=== PATIENT | female | born 1990 | race Caucasian/White ===

== ENCOUNTER → 2024-03-02 | Outpatient (CLI) | payer OTHER ==
[2024-03-02 11:59] LABS: Source, Urine Clean Catch
[2024-03-02 13:23] LABS: Bacteria Many /hpf; Red Blood Cells, Urine Not Seen /hpf (0-2); Squamous Epithelial Cells Rare /hpf (Few); White Blood Cells, Urine 0-2 /hpf (0-5)
== END | disposition home or self-care (01) ==
LOC: LAB SHORT 11:56
PROVIDERS: Advanced Practice Midwife
DX: O09.90 Supervision of high risk pregnancy, unspecified, unspecified trimester (principal)
CPT/HCPCS: 81015; 87077; 87086; 87186

== ENCOUNTER → 2024-09-22 | Outpatient (CLI) | payer OTHER | LOC: LAB 16:16 → LAB SHORT 16:16 | DX: O09.90 Supervision of high risk pregnancy, unspecified, unspecified trimester (principal) | CPT/HCPCS: 87081; 87150 ==

== ENCOUNTER 2024-10-14 20:02 | Inpatient (IN) | payer OTHER ==
[~2024-10-14] VITALS: Ht 175.3 cm; Wt 83.6 kg
[2024-10-14] MEDS ORDERED: Misoprostol 200 MCG Tab BC PRN (20:10)
[2024-10-14] MEDS ORDERED: Misoprostol 200 MCG Tab PR PRN (20:10)
[2024-10-14] MEDS ORDERED: Calcium Carbonate 500 MG Tab Chew PO PRN (20:10)
[2024-10-14] MEDS ORDERED: OXYTOCIN/RINGER'S LACTATE 500 ML IV PRN (20:10)
[2024-10-14] MEDS ORDERED: ePHEDrine Sulfate 50 MG/ML 1ML Injection XX PRN (20:10)
[2024-10-14] MEDS ORDERED: Lactated Ringer's 1,000 ML IV PRN ×5 (20:10→21:40)
[2024-10-14] MEDS ORDERED: Oxytocin 10 Unit / ML Vial IM PRN (20:10)
[2024-10-14] MEDS ORDERED: Methylergonovine Maleate 0.2MG / ML 1ML Amp IM PRN (20:10)
[2024-10-14] MEDS ORDERED: Carboprost Tromethamine 250 MCG/ML 1ML Amp IM PRN (20:10)
[2024-10-14] MEDS ORDERED: FentaNYL 2mcg/ml-Bup 0.1% Epd 250 ML EPI PRN (20:10)
[2024-10-14] MEDS ORDERED: Acetaminophen 500 MG Tab PO PRN (20:15)
[2024-10-14] MEDS ORDERED: Ondansetron HCl 2 MG / ML 2ML Vial IV PRN (20:15)
[2024-10-14] MEDS ORDERED: FentaNYL Citrate 50 MCG/ML 2 ML Injection IV PRN (20:15)
[2024-10-14 20:19] VITALS: BP 134/89
[2024-10-14] MEDS ORDERED: Tranexamic Acid 100 ML IV PRN (20:20)
[2024-10-14 20:48] LABS: BASOPHILS ABSOLUTE AUTO 0.05 K/mm3 (0.00-0.23); BASOPHILS PERCENT AUTO 0 % (0-2); EOSINOPHILS PERCENT AUTO 1 % (0-6); Hematocrit 32.9 % (33.0-51.0); Hemoglobin 11.1 g/dL (11.5-16.0); IMMATURE GRAN PERCENT AUTO 1 % (0-1); LYMPHOCYTES ABSOLUTE AUTO 2.84 K/mm3 (0.84-5.20); LYMPHOCYTES PERCENT AUTO 21 % (21-46); MONOCYTES ABSOLUTE AUTO 0.96 K/mm3 (0.16-1.47); MONOCYTES PERCENT AUTO 7 % (4-13); Mean Corpuscular HGB 26.9 pg (26.0-34.0); Mean Corpuscular HGB Conc 33.7 g/dL (31.5-36.5); Mean Corpuscular Volume 80 fL (80-100); Mean Platelet Volume 11.8 fL (9.1-12.4); NEUTROPHILS ABSOLUTE AUTO 9.65 K/mm3 (1.96-9.15); NEUTROPHILS PERCENT AUTO 70 % (41-73); Platelet Count 200 K/mm3 (150-400); RDW Coefficient Variation 13.2 % (11.7-14.2); RDW Standard Deviation 37.4 fL (35.1-46.3); Red Blood Cell Count 4.12 M/mm3 (3.80-5.20)
[2024-10-14] MEDS ORDERED: OXYTOCIN/RINGER'S LACTATE 500 ML IV SCH (21:40)
[2024-10-14 21:46] VITALS: BP 126/57
[2024-10-15] VITALS (21 sets, daily range): BP systolic 95–152; BP diastolic 51–81
[2024-10-15] MEDS ORDERED: Oxytocin 10 Unit / ML Vial IM ONE (09:45)
[2024-10-15] MEDS ORDERED: Witch Hazel/Glycerin PADS TOP PRN (09:45)
[2024-10-15] MEDS ORDERED: Lactated Ringer's 1,000 ML IV SCH (09:45)
[2024-10-15] MEDS ORDERED: Ketorolac Tromethamine 30mg Vial IV PRN (09:45)
[2024-10-15] MEDS ORDERED: OXYTOCIN/RINGER'S LACTATE 500 ML IV SCH (09:45)
[2024-10-15] MEDS ORDERED: Lanolin Cream TOP PRN (09:45)
[2024-10-15] MEDS ORDERED: Methylergonovine Maleate 0.2MG / ML 1ML Amp IM PRN (09:50)
[2024-10-15] MEDS ORDERED: Benzocaine Topical Anesthetic Spray 60GM TOP PRN (09:50)
[2024-10-15] MEDS ORDERED: Ibuprofen 400 MG Tab PO PRN (09:50)
[2024-10-15] MEDS ORDERED: Misoprostol 200 MCG Tab PR PRN (09:50)
[2024-10-15] MEDS ORDERED: FLU VACC TS2024-25(6MOS UP)/PF 45 MCG/0.5 ML SYRINGE IM SCH (09:50)
[2024-10-15] MEDS ORDERED: Carboprost Tromethamine 250 MCG/ML 1ML Amp IM PRN (09:50)
[2024-10-15] MEDS ORDERED: Docusate Sodium 100 MG Cap PO PRN (09:50)
[2024-10-15] MEDS ORDERED: Acetaminophen 500 MG Tab PO PRN (09:55)
--- NOTE | 2024-10-15 11:19 | NUR ---
Assumed care from Terri Crawford RN
[2024-10-16 00:21] VITALS: BP 108/53
[2024-10-16 03:56] VITALS: BP 126/57
[2024-10-16 06:31] LABS: BASOPHILS ABSOLUTE AUTO 0.03 K/mm3 (0.00-0.23); BASOPHILS PERCENT AUTO 0 % (0-2); EOSINOPHILS ABSOLUTE AUTO 0.11 K/mm3 (0.00-0.68); EOSINOPHILS PERCENT AUTO 1 % (0-6); Hematocrit 28.7 % (33.0-51.0); Hemoglobin 9.2 g/dL (11.5-16.0); IMMATURE GRAN ABSOLUTE AUTO 0.16 K/mm3 (0.00-0.10); IMMATURE GRAN PERCENT AUTO 1 % (0-1); LYMPHOCYTES ABSOLUTE AUTO 2.45 K/mm3 (0.84-5.20); LYMPHOCYTES PERCENT AUTO 20 % (21-46); MONOCYTES ABSOLUTE AUTO 0.81 K/mm3 (0.16-1.47); MONOCYTES PERCENT AUTO 7 % (4-13); Mean Corpuscular HGB 26.9 pg (26.0-34.0); Mean Corpuscular HGB Conc 32.1 g/dL (31.5-36.5); Mean Corpuscular Volume 84 fL (80-100); Mean Platelet Volume 11.7 fL (9.1-12.4); NEUTROPHILS ABSOLUTE AUTO 8.61 K/mm3 (1.96-9.15); NEUTROPHILS PERCENT AUTO 71 % (41-73); Platelet Count 161 K/mm3 (150-400); RDW Coefficient Variation 13.5 % (11.7-14.2); RDW Standard Deviation 40.6 fL (35.1-46.3); Red Blood Cell Count 3.42 M/mm3 (3.80-5.20); White Blood Cell Count 12.17 K/mm3 (4.00-11.30)
[2024-10-16 07:17] VITALS: BP 113/62
[2024-10-16] MEDS ORDERED: Prenatal Vit/FE Fumarate/FA 1 Tab PO SCH (09:00)
--- NOTE | 2024-10-16 10:55 | NUR ---
dc instructions reviewed with patient. questions answered. will follow up on Saturday at 11am. denies taking lexapro or needing it.
== END 2024-10-16 11:45 | disposition home or self-care (01) | DRG 806 ==
LOC: OBS 20:02 → BC 20:04 → OBS 20:11 → BC 20:13
PROVIDERS: ADMIT Advanced Practice Midwife
PROC: 0U7C7ZZ Dilation of Cervix, Via Natural or Artificial Opening (ICD-10-PCS; 2024-10-14)
PROC: 4A1HXCZ Monitoring of Products of Conception, Cardiac Rate, External Approach (ICD-10-PCS; 2024-10-14)
PROC: 10E0XZZ Delivery of Products of Conception, External Approach (ICD-10-PCS; principal; 2024-10-15)
PROC: 10907ZC Drainage of Amniotic Fluid, Therapeutic from Products of Conception, Via Natural or Artificial Opening (ICD-10-PCS; 2024-10-15)
PROC: 3E033VJ Introduction of Other Hormone into Peripheral Vein, Percutaneous Approach (ICD-10-PCS; 2024-10-15)
DX: O99.344 Other mental disorders complicating childbirth (principal); D62 Acute posthemorrhagic anemia; Z37.0 Single live birth; Z3A.39 39 weeks gestation of pregnancy; F41.8 Other specified anxiety disorders; Z88.0 Allergy status to penicillin; O71.82 Other specified trauma to perineum and vulva; O99.02 Anemia complicating childbirth; O90.81 Anemia of the puerperium
CPT/HCPCS: 36415; 51702; 59200; 85025; 86850; 86900; 86901; A9270; J1885; J2405; J2590; J3010; J7120